=== PATIENT | female | born 1995 | race Caucasian/White ===

== ENCOUNTER → 2017-12-24 | Outpatient (CLI) | payer OTHER ==
[~2017-12-24] VITALS: Ht 152.4 cm; Wt 68.0 kg
[~2017-12-24] MED LIST: AMOX1TAB5 PO; DIPROLENE AF 0.50 GM; IBUPROFEN800 MG PO; LOESTRIN FE 1-1 EACH; LOESTRIN FE 1/21 TAB PO; ORPH100T PO; TRINESSA1 TAB; ZANTAC300 MG PO; ZITHROMAX500 MG PO
== END | disposition home or self-care (01) ==
LOC: PPHC 16:02
DX: J06.9 Acute upper respiratory infection, unspecified (principal); R50.9 Fever, unspecified; J02.8 Acute pharyngitis due to other specified organisms

== ENCOUNTER 2018-12-05 13:44 | Emergency (ER) | payer OTHER ==
[~2018-12-05] VITALS: Ht 160 cm; Wt 70.3 kg
[2018-12-05] MEDS ORDERED: KETO10TA2 (14:09)
== END 2018-12-05 16:08 | disposition home or self-care (01) ==
LOC: ER 13:44
DX: S90.02XA Contusion of left ankle, initial encounter (principal); W10.8XXA Fall (on) (from) other stairs and steps, initial encounter; Y93.89 Activity, other specified; Y92.89 Other specified places as the place of occurrence of the external cause; Y99.8 Other external cause status

== ENCOUNTER 2018-12-24 10:40 | Outpatient (CLI) | payer OTHER ==
[~2018-12-24 10:40] MED LIST changes: +KETO10TA2
== END 2018-12-24 13:12 | disposition home or self-care (01) ==
LOC: LAB 10:40
DX: N39.0 Urinary tract infection, site not specified (principal)